=== PATIENT | female | born 1990 | race Two or more races ===

== ENCOUNTER 2023-05-06 18:41 | Emergency (ER) | payer SELFPAY ==
[~2023-05-06] VITALS: Ht 165.1 cm; Wt 60.0 kg
[2023-05-06 19:13] VITALS: BP 122/77; PULSE 94; RESP 16; TEMP 98.1; O2SAT 99
[2023-05-06] MEDS ORDERED: HYDROcodone-ACET 5/325MG TAB PO ONE (19:15)
[2023-05-06] MEDS ORDERED: CYCL-837 PO (20:03)
[2023-05-06] MEDS ORDERED: IBUP-1454 PO (20:03)
== END 2023-05-06 20:26 | disposition home or self-care (01) ==
LOC: ER 18:41 → EDBD 18:41 → EDUNIT# 18:41 → ER 20:26
DX: S16.1XXA Strain of muscle, fascia and tendon at neck level, initial encounter (principal); V49.88XA Car occupant (driver) (passenger) injured in other specified transport accidents, initial encounter; Y93.89 Activity, other specified; Y92.89 Other specified places as the place of occurrence of the external cause; Y99.8 Other external cause status
CPT/HCPCS: 72125

== ENCOUNTER 2024-04-27 08:04 | Emergency (ER) | payer MEDICAID ==
[~2024-04-27] VITALS: Ht 165.1 cm; Wt 61.0 kg
[~2024-04-27 08:04] MED LIST: CYCL-837 PO; IBUP-1454 PO
[2024-04-27 08:31] LABS: Basophils # (auto) 0 10 ^3/uL (0-0.2); Eosinophils # (auto) 0 10 ^3/uL (0-0.8); Eosinophils % (auto) 0.4 % (0.0-7.0); Hemoglobin 13.8 g/dL (12.2-16.2); Mean Corpuscular Hgb Conc. 34.5 g/dL (32.0-36.0); Monocytes # (auto) 0.4 10 ^3/uL (0-1.3); Neutrophils # (auto) 6.2 10 ^3/uL (1.6-8.6); White Blood Cell 7.6 10^3/uL (4.4-10.8)
[2024-04-27 08:33] LABS: Basophils % (auto) 0.3 % (0.0-2.0); Hematocrit 40.1 % (36.0-46.0); Lymphocytes % (auto) 13.7 % (10.0-50.0); Mean Corpuscular Hemoglobin 34.7 pg (28.0-32.0); Mean Corpuscular Volume 100.7 fL (80.0-100.0); Monocytes % (auto) 4.7 % (0.0-12.0); Neutrophils % (auto) 80.9 % (37.0-80.0); Platelet Count (auto) 182 10^3/uL (140-450); Red Blood Cells 3.98 10^6/uL (4.0-5.20); Red Cell Distribution Width 13.1 % (11.8-14.3)
[2024-04-27 08:41] LABS: Anion Gap 7 (5-15); Carbon Dioxide 27 mmol/L (20-30); Chloride 106 mmol/L (98-107); Potassium 4.4 mmol/L (3.5-5.1); Sodium 140 mmol/L (136-145)
[2024-04-27 08:42] LABS: Calcium 10.1 mg/dL (8.7-10.4)
[2024-04-27 08:44] LABS: Urine Bacteria None Seen /hpf (None Seen)
[2024-04-27 08:47] LABS: BUN/Creatinine Ratio 14.9 (10.0-20.0); Blood Urea Nitrogen 11 mg/dL (9-23); Glucose 93 mg/dL (74-106)
[2024-04-27 08:57] VITALS: TEMP 97.9; O2SAT 98
[2024-04-27] MEDS: SODIUM CHLORIDE 0.9% 1,000 ML IVB ONE (08:59)
[2024-04-27] MEDS: ONDANSETRON HCL 4 MG/2 ML VIAL IV ONE (09:00)
[2024-04-27] MEDS: MORPHINE SULFATE 4 MG/ML SYR/VIAL IV ONE (09:01)
[2024-04-27 09:03] LABS: Urine Blood Negative /uL (Negative); Urine Clarity Clear (Clear); Urine Color Light-Yellow (Yellow); Urine Protein, UAD Negative (Negative); Urine Specific Gravity 1.023 (1.001-1.035); Urine Urobilinogen Normal (Negative); Urine WBC 1 /hpf (0 - 5)
[2024-04-27 10:00] VITALS: BP 106/74; PULSE 75; RESP 15
== END 2024-04-27 11:18 | disposition left against medical advice (07) ==
LOC: ER 08:04
DX: K52.9 Noninfective gastroenteritis and colitis, unspecified (principal); Z79.899 Other long term (current) drug therapy
CPT/HCPCS: 36415; 80048; 81001; 85025; 96361; 96374; 96375; 99284; J2270; J2405; J7030